=== PATIENT | male | born 1960 | race Caucasian/White ===

== ENCOUNTER → 2017-05-14 | Outpatient (CLI) | payer BC ==
--- NOTE | 2017-05-14 15:56 | MRI ---
MRI SPINE LUMBAR WITHOUT CONTRAST CLINICAL HISTORY: 57-year-old male with chronic low back pain. COMPARISON: None. Technique: Multiplanar, multisequence MRI images of the lumbar spine were obtained without the admi nistration of contrast. FINDINGS: The most caudad, fully-formed intervertebral disc will be labeled L5-S1 for the purpose of this dictation. Mild straightening of lumbar lordosis as imaged. Alignment is maintained. Mild loss of disk space at L5-S1 with mild loss of disc signal from L4-S1. Scattered hyperintensities within the vertebral marrow consistent with hemangiomas. Vertebral body heights are preserved with the bharti ining intervertebral disc height and signal preserved. Cord signal is normal. The conus medullaris i s normal in signal characteristics and morphology and terminates at the T12-L1 level. T11-T12: Imaged in the sagittal plane only without central canal or neural foraminal stenosis. T12-L1: Small symmetric disc bulge without central canal or neural foraminal stenosis. L1-L2: Symmetric disc bulge with mild facet arthropathy without central canal or neural foraminal st enosis. L2-L3: Moderate disk bulge with mild facet hypertrophy and thickened ligamentum flavum without centr al canal or neural foraminal stenosis. L3-L4: Large symmetric disc bulge with moderate facet hypertrophy with thickened ligamentum flavum w ithout central canal or neural foraminal stenosis. L4-L5: Large disc bulge with a left central component that engages the ventral aspect of the transit ing left L5 nerve root. Severe bilateral facet hypertrophy with left-sided subchondral cyst within t he inferior facet. There is no significant central canal or neural foraminal stenosis. L5-S1: Disc bulge with an asymmetric right foraminal component that engages the ventral aspect of th e transiting right S1 nerve root. Severe bilateral facet hypertrophy with thickened ligamentum flavu m. No central canal or neural foraminal stenosis. Multiple T2 hyperintense and T1 hypo intense cystic lesions in the kidneys bilaterally that likely r epresent simple cysts. IMPRESSION: 1. 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 2. Bilateral renal cystic lesions, likely simple cysts, further evaluation with renal ultrasound or renal protocol CT may be of benefit if not previously performed. Reported By:
== END | disposition home or self-care (01) | DRG 552 ==
LOC: RAD 13:47
PROVIDERS: ATTEND Student in an Organized Health Care Education/Training Program
DX: M54.5 Low back pain (principal); M47.896 Other spondylosis, lumbar region; M47.898 Other spondylosis, sacral and sacrococcygeal region; M51.36 Other intervertebral disc degeneration, lumbar region; M53.3 Sacrococcygeal disorders, not elsewhere classified
CPT/HCPCS: 72148

== ENCOUNTER → 2017-06-05 | Outpatient (CLI) | payer BC ==
[~2017-06-05] MED LIST: NS 100 ML IV 100 ML IV ONE
[2017-06-05 10:04] LABS: CREATININE 1.36 mg/dL (0.70-1.30)
--- NOTE | 2017-06-05 12:21 | CT ---
HISTORY: Bilateral renal cysts, right lower quadrant pain Study: CT abdomen pelvis with and without contrast Comparison: MRI lumbar spine May 14, 2017 Technique: Axial pre and post contrast images with coronal and sagittal reformats according to a franky jomar protocol. Dose reduction procedures were use with MA/kv adjusted for body size. Findings: The lung bases are clear. The liver, spleen, adrenal glands, and pancreas are within normal limits. The patient is status post cholecystectomy. The kidneys are unobstructed and without stones or solid masses. Sub centimeter benign cortical cysts are present bilaterally. No ureteral calculi are ident ified. No intraperitoneal or retroperitoneal lymphadenopathy of significance is identified. The appe ndix is normal. There are no findings suggestive of diverticulitis or colitis. Examination of the pe lvis demonstrated no evidence for pelvic masses, pelvic fluid, or pelvic lymphadenopathy. No bladder abnormality is identified. No lytic or blastic skeletal lesions are identified. IMPRESSION: Bilateral sub centimeter benign renal cysts Normal appendix No significant abnormality identified Reported By:
== END | disposition home or self-care (01) | DRG 392 ==
LOC: RAD 09:37
PROVIDERS: ATTEND Student in an Organized Health Care Education/Training Program
DX: R10.31 Right lower quadrant pain (principal); N28.1 Cyst of kidney, acquired
CPT/HCPCS: 36415; 74178; 82565; 84520; A4222